=== PATIENT | female | born 1990 | race Hispanic/Latino ===

== ENCOUNTER 2021-10-20 07:41 | Emergency (ER) | payer OTHER ==
[2021-10-20] MEDS ORDERED: Pantoprazole 40 MG VIAL ONE (08:15)
[2021-10-20] MEDS ORDERED: Ondansetron PF 4 MG/2 ML Vial ONE (08:15)
[2021-10-20 08:19] LABS: Bilirubin Neg (Negative); Blood, Urine 10 (Negative); Clarity Clear (Clear); Glucose, Urine (Dipstick) Normal (Negative); Ketone, Urine Negative (Negative); Leukocyte Negative (Negative); Nitrite Negative (Negative); Protein, Urine (Dipstick) Negative (Neg-Trace); Urobilinogen Normal mg/dL (Less than 2)
[2021-10-20 08:45] LABS: BHCG - Serum Negative (NEGATIVE); Pregs Control Background? CLEAR/WHITE (CLR/WHITE); Pregs Control Bar Appear? YES (CONTROL BAR)
[2021-10-20 08:53] LABS: #Monocytes 0.7 10x3/uL (0.0-1.1); #Neutrophils 5.2 10x3/uL (1.5-8.4); %Basophils 0.5 % (0.0-2.0); %Eosinophils 0.3 % (0.0-6.0); %Lymphocytes 23.1 % (18.0-47.0); %Monocytes 8.7 % (0.0-10.0); %Neutrophils 66.9 % (40.0-75.0); ALT (SGPT) 21 U/L (8-55); AST (SGOT) 26 U/L (5-34); Albumin 4.8 g/dL (3.5-5.0); Alkaline Phosphatase 71 U/L (40-110); Anion Gap 17 mmol/L (10-20); BUN (Urea Nitrogen) 17 mg/dL (7.0-18.7); Bilirubin, Total 1.1 mg/dL (0.2-1.2); CK (CPK) 23 U/L (29-168); Calc. Creatinine Clearance 0 mL/min (70-130); Calcium 10.8 mg/dL (7.8-10.44); Carbon Dioxide 25 mmol/L (22-29); Chloride 101 mmol/L (98-107); Globulin 4.1 g/dL (2.4-3.5); Glucose 105 mg/dL (70-105); Hemoglobin 14.2 g/dL (12.0-15.5); Lipase 39 U/L (8-78); Mean Corpuscular HGB CONC 34.5 g/dL (32.0-36.0); Mean Corpuscular Hemoglobin 28.2 pg (27.0-33.0); Mean Corpuscular Volume 81.7 fl (81.6-98.3); Mean Platelet Volume 8.7 fl (7.4-10.4); Platelet Count 315 10x3/uL (150-450); Potassium 4.3 mmol/L (3.5-5.1); Protein, Total 8.9 g/dL (6.0-8.3); RBC Distribution Width 13.9 % (11.5-14.5); Red Blood Cell (RBC) Count 5.04 10x6/uL (3.90-5.03); Sodium 139 mmol/L (136-145); White Blood Cell (WBC) Count 7.7 10x3/uL (3.5-10.5)
[2021-10-20 09:18] LABS: RBC/HPF 0-3 HPF (0-3)
[2021-10-20 09:19] LABS: Bacteria/HPF Rare-Few HPF (None Seen); Squamous Epithelial 0-3 HPF (0-3)
== END 2021-10-20 09:29 | disposition home or self-care (01) ==
LOC: CSHERS 07:41
DX: F19.139 Other psychoactive substance abuse with withdrawal, unspecified (principal); R11.10 Vomiting, unspecified; E86.0 Dehydration
CPT/HCPCS: 80053; 81003; 81015; 82550; 83690; 84703; 85025; 96361; 96374; 96375; C9113; J2405